=== PATIENT | female | born 1960 | race Hispanic/Latino ===

== ENCOUNTER 2017-08-25 10:05 | Outpatient (CLI) | payer OTHER ==
--- NOTE | 2017-08-25 15:26 | Mammography Report ---
BILATERAL DIGITAL SCREENING MAMMOGRAM with CAD: 08/25/17 10:05:00 CLINICAL: Routine screening. COMPARISON:01/07/15 FINDINGS: The breasts are heterogeneously dense, which may obscure small masses. No mass, architectural distortion or suspicious calcifications. IMPRESSION: No mammographic evidence of malignancy. BI-RADS CATEGORY: 1 - - Negative RECOMMENDATION: Routine mammographic screening in one year. COMMENT: Patient follow-up letters are generated by our [employer] application.
== END 2017-08-25 10:06 | disposition home or self-care (01) ==
LOC: SPVWC 10:05
PROVIDERS: ATTEND Obstetrics & Gynecology
DX: Z12.31 Encounter for screening mammogram for malignant neoplasm of breast (principal)
CPT/HCPCS: 77067

== ENCOUNTER 2018-08-31 11:23 | Outpatient (CLI) | payer OTHER ==
--- NOTE | 2018-08-31 14:28 | Mammography Report ---
BILATERAL DIGITAL SCREENING MAMMOGRAM with CAD: 08/31/18 11:23:00 CLINICAL: Routine screening. COMPARISON:08/25/17 FINDINGS: The breasts are heterogeneously dense, which may obscure small masses. No mass, architectural distortion or suspicious calcifications. IMPRESSION: No mammographic evidence of malignancy. BI-RADS CATEGORY: 1 - - Negative RECOMMENDATION: Routine mammographic screening in one year. COMMENT: Patient follow-up letters are generated by our [employer] application.
== END 2018-08-31 11:24 | disposition home or self-care (01) ==
LOC: SPVWC 11:23
PROVIDERS: ATTEND Obstetrics & Gynecology
DX: Z12.31 Encounter for screening mammogram for malignant neoplasm of breast (principal)
CPT/HCPCS: 77067